=== PATIENT | male | born 1940 | race American Indian/Alaskan Native ===

== ENCOUNTER 2018-09-06 13:22 | Emergency (ER) | payer MEDICARE ==
[2018-09-06 13:22] VITALS: BMI 33.0
[2018-09-06] MEDS ORDERED: Iohexol 240 (50 ml) PO ONE (14:49)
[2018-09-06] MEDS ORDERED: Diatriz Meglumine/Diatriz Sod 30 ML BOTTLE PO ONE (14:49)
--- NOTE | 2018-09-06 15:00 | ED PDOC ---
HPI: Abdomen Time Seen by Provider: 09/06/18 13:51 Chief Complaint (Nursing): Abdominal Pain Chief Complaint (Provider): abdominal pain History Per: Patient History/Exam Limitations: no limitations Onset/Duration Of Symptoms: Days (several weeks) Outside of [place] travel?: No Context: Food Location Of Pain/Discomfort: Epigastric, LUQ, Periumbilical Quality Of Discomfort: Aching Associated Symptoms: Fever, Nausea. denies: Chills, Vomiting, Diarrhea, Loss Of Appetite, Chest Pain, Constipation Alleviating Factors: None Last Bowel Movement: Today Additional Complaint(s): 77 y/o M with HTN, HL, A-fib, CHF, ICD, who presents to ED with persistent abdominal pain. Patient was recently seen in ED in mid July with similar abdominal pain complaint and had CT abdomen that showed cholelithiasis w/o cholecystitis. Pt was discharged with Ibuprofen. He comes back in stating that he has been having colicky abdominal pain for the past week, mostly at night prior to going to bed. No relation to food. + nausea, no vomiting, admits to subjective fevers. States that he gets bloated and just doesn't feel well. Denies C/P, palpitations, SOB, dizziness, diarrhea. Last BM this morning and has been having BMs regularly. He has an appointment with GI in late October but states that the pain is keeping him awake at night. Past Medical History Reviewed: Historical Data, Nursing Documentation, Vital Signs Vital Signs: Last Vital Signs Temp 98.4 F 09/06/18 13:34 Pulse 86 09/06/18 13:34 Resp 18 09/06/18 13:34 BP 145/79 09/06/18 13:34 Pulse Ox 100 09/06/18 13:34 - Medical History PMH: CHF, HTN - Surgical History Surgical History: Pacemaker Other surgeries: cholecystectomy 4yrs ago - Family History Family History: States: Unknown Family Hx - Social History Current smoker - smoking cessation education provided: No Ex-Smoker (has not smoked in the last 12 months): No Alcohol: None Drugs: Denies - Home Medications Home Medications: Ambulatory Orders Medication Instructions Recorded Carvedilol [Coreg] 6.25 mg PO BID 06/25/18 RX: Losartan Potassium 50 mg PO DAILY 06/25/18 RX: Pantoprazole [Protonix EC Tab] 40 mg PO DAILY 06/25/18 Rivaroxaban [Xarelto] 15 mg PO DAILY 06/25/18 Amiodarone [Cordarone] 200 mg PO DAILY 08/19/18 Finasteride [Proscar] 5 mg PO DAILY 08/19/18 Ibuprofen [Motrin] 600 mg PO Q6 PRN #20 tab 08/19/18 RX: Torsemide 20 mg PO DAILY 08/19/18 Tamsulosin HCl [Flomax] 0.4 mg PO DAILY 08/19/18 Atorvastatin [Lipitor] 40 mg PO DAILY 09/02/18 chlordiazePOXIDE-Clinidium [Librax 1 cap PO HS 09/02/18 5 MG-2.5 MG] - Allergies Allergies/Adverse Reactions: Allergies Allergy/AdvReac Type Severity Reaction Status Date / Time No Known Allergies Allergy Verified 09/06/18 13:34 Review of Systems ROS Statement: Except As Marked, All Systems Reviewed And Found Negative Constitutional: Negative for: Fever, Weakness, Weight loss Cardiovascular: Negative for: Chest Pain Respiratory: Negative for: Cough Gastrointestinal: Positive for: Nausea, Abdominal Pain. Negative for: Vomiting, Diarrhea, Constipation Neurological: Negative for: Weakness Physical Exam - Reviewed Nursing Documentation Reviewed: Yes Vital Signs Reviewed: Yes - Physical Exam Appears: Positive for: Uncomfortable Head Exam: Positive for: ATRAUMATIC Skin: Positive for: Normal Color Eye Exam: Positive for: Normal appearance ENT: Positive for: Normal ENT Inspection Neck: Positive for: Normal Cardiovascular/Chest: Positive for: Regular Rate, Rhythm Respiratory: Positive for: Normal Breath Sounds Gastrointestinal/Abdominal: Positive for: Bowel Sounds (normal), Soft, Tenderness (epigastric and mild LUQ tenderness), Distended (mild distention), Other. Negative for: Organomegaly, Mass, Guarding, Rebound Back: Positive for: Normal Inspection Lymphatic: Positive for: Normal Exam Neurologic/Psych: Positive for: Alert, Oriented - Laboratory Results Result Diagrams: 09/06/18 16:00 09/06/18 16:00 - ECG O2 Sat by Pulse Oximetry: 100 Medical Decision Making Medical Decision Making: CT abdomen/pelvis w/ PO and IV contrast, CBC CMP Amylase/Lipase Urine dip Pepcid 20mg IV x 1 EKG: NSR, no ischemic change Trop: < 0.2 CT abdomen/pelvis w/ PO and IV contrast: Prior cholecystectomy in question. Dilated mid to distal CBD w/o radiodense cholelithiasis identified. Potential dilatation of the distal pancreatic duct at the level of the pancreatic head w/ pancreatic cyst not excluded. F/u U/s of the abdomen advised as well as MRCP and abdomen MRI w/ and w/o contrast. 2. No bowel obstruction, measure edema, ascites or free intra peritoneal gas collection identified. 3. Tiny lucency at the dome of the liver too small to characterize. Re-evaluated @ 8pm: pain improved, lying comfortably. Surgery consult given CT findings Abdomen U/S limited ordered Patient signed out to ALEXANDRA Black at 9:20pm pending U/S result and surgery consult. Disposition - Clinical Impression Clinical Impression: Abdominal discomfort - Disposition Disposition Time: 21:20 Condition: FAIR Forms: [employer] (Japanese)
[2018-09-06] MEDS ORDERED: Iohexol 240 (50 ml) ONE (15:20)
[2018-09-06 16:26] LABS: BASO % 0.5 % (0.0-2.0); EOS # 0.1 K/uL (0.0-0.7); EOS % 2.1 % (0.0-4.0); HEMOGLOBIN 11.3 g/dL (12.0-18.0); LYMPH # 1.2 K/uL (1.0-4.3); LYMPH % 29.3 % (20.0-40.0); MEAN CELL VOLUME 88.6 fl (80.0-94.0); MEAN CORPUSCULAR HEMOGLOBIN 28.3 pg (27.0-31.0); MEAN PLATELET VOLUME 8.5 fl (7.2-11.7); MONO # 0.5 K/uL (0.0-0.8); MONO % 12.7 % (0.0-10.0); NEUT # 2.4 K/uL (1.8-7.0); NEUT % 55.4 % (50.0-75.0); NRBC % 0.1 % (0.0-0.0); RED CELL DISTRIBUTION WIDTH 17.4 % (11.5-14.5); WHITE BLOOD COUNT 4.3 K/uL (4.8-10.8)
[2018-09-06 16:40] LABS: ALB/GLOB RATIO 1.1 (1.0-2.1); ALBUMIN 4.1 g/dL (3.5-5.0); CALCIUM 8.5 mg/dL (8.4-10.2)
[2018-09-06 16:50] LABS: TROPONIN I 0.021 ng/mL (0.00-0.120)
[2018-09-06] MEDS ORDERED: Sodium Chloride 0.9% 50 ML IV ONE (17:25)
[2018-09-06] MEDS ORDERED: Iodixanol 320 MG/ML 100 ML BOTTLE IV ONE (17:25)
--- NOTE | 2018-09-06 18:41 | CT ---
Date of service: 09/06/2018 PROCEDURE: CT Abdomen and Pelvis with contrast HISTORY: abdominal pain COMPARISON: None. TECHNIQUE: Following oral and intravenous contrast administration, a CT examination of the abdomen and pelvis performed from the domes of the diaphragms to the symphysis pubis with reformatted datasets provided not only axial but also sagittal and coronal series. Coronal and sagittal reformats were generated. contrast dose: Visipaque 320, 100 cc Radiation dose: Total exam DLP = 866.95 mGy-cm. This CT exam was performed using one or more of the following dose reduction techniques: Automated exposure control, adjustment of the mA and/or kV according to patient size, and/or use of iterative reconstruction technique. FINDINGS: LOWER THORAX: Prominent cardiomegaly. AICD/pacemaker leads are identified at the right heart. Small hiatal hernia identified. LIVER: A tiny lucency is identified at the dome liver too small to characterize. GALLBLADDER AND BILE DUCTS: There are numerous small ovoid calcifications identified in the gallbladder fossa suggested within the gallbladder lumen. However, there is what appears to be a surgical clip lateral to these rounded structures. The common bile duct appears to measure approximately 11 mm at its mid to distal segment without radiodense cholelithiasis. Consider possible cholecystectomy with non bile origin calcifications near the gallbladder fossa. Further clinical correlation recommended. PANCREAS: Questionable dilatation of the distal pancreatic duct at the pancreatic head. Pancreatic cystic lesion is not excluded. Follow-up ultrasound recommended. SPLEEN: Unremarkable. ADRENALS: Unremarkable. No mass. KIDNEYS AND URETERS: Unremarkable. No hydronephrosis. No solid mass. VASCULATURE: Nonaneurysmal abdominal aortic calcific atherosclerotic changes are identified. BOWEL: Stomach is mildly distended with oral contrast material and retained food and is unremarkable grossly. There is no bowel obstruction identified. Moderate retained fecal material scattered throughout various large bowel segments obscures evaluation including the cecum and ascending segment. No colonic diverticular changes or pericolic reaction. APPENDIX: Normal appendix. PERITONEUM: Unremarkable. No free fluid. No free air. LYMPH NODES: Unremarkable. No enlarged lymph nodes. BLADDER: Unremarkable. REPRODUCTIVE: Unremarkable. BONES: No acute fracture. OTHER FINDINGS: None. IMPRESSION: 1. Prior cholecystectomy in question. Dilated mid to distal CBD without radiodense cholelithiasis identified. Potential dilatation of the distal pancreatic duct at the level the pancreatic head with pancreatic cyst not excluded. Follow-up ultrasound of the abdomen advised as well as MRCP and abdomen MRI with and without contrast. 2. No bowel obstruction, measure edema, ascites or free intra peritoneal gas collection identified. 3. Tiny lucency at the dome liver too small to characterize.
[2018-09-06 21:05] VITALS: RESP 16
--- NOTE | 2018-09-06 21:41 | ED PDOC ---
- Laboratory Results Result Diagrams: 09/06/18 16:00 09/06/18 16:00 - ECG O2 Sat by Pulse Oximetry: 100 - Progress ED Course And Treament: Case endorsed to racebook writer from Júnior GUIDO pending u/s, surgical consult Date of service: 09/06/[address] for gallbladder. Comparison CT 09/06/18. Technique Sonographic evaluation of the right upper quadrant of the abdomen. Findings Liver Measures 14.5 cm in length. Normal echogenicity of the liver parenchyma. Smooth contour. No mass. No intrahepatic bile duct dilatation. Gallbladder Surgical clip is noted in the gallbladder fossa, please correlate with surgical history. Cluster of gallstones is noted located within contracted gallbladder. No pericholecystic fluid. Gallbladder wall is not clearly seen. Negative Lyons sign. Common bile duct Measures 0.4 cm. No stones. No dilatation. Pancreas Unremarkable as visualized. No mass. No ductal dilatation. Right kidney Measures 9.0 x 3.8 x 4.0 cm in length. Normal echogenicity. No calculus, mass, or hydronephrosis. Aorta No aneurysmal dilatation. IVC Unremarkable. Other Findings None. Impression Surgical clip is noted in the gallbladder fossa, please correlate with surgical history. Cluster of gallstones is noted located within contracted gallbladder. residential real estate appraiser Dr. Gan informed of u/s results; recommends outpatient follow up with Dr. Moody On re-eval, patient resting comfortably; states no pain currently. Patient was educated on findings, discharged with rx Tylenol Advised follow up with Surgeon Return precautions given Patient demonstrates full understanding of discharge instructions Patient requires no further intervention in the ED and is stable for discharge at this time Disposition - Clinical Impression Clinical Impression: Abdominal discomfort, Cholelithiasis - POA Present On Arrival: None - Disposition Referrals: Cathryn Moody MD [Staff Provider] - Disposition: Routine/Home Disposition Time: 00:20 Condition: IMPROVED Prescriptions: Acetaminophen [Tylenol Extra Strength] 500 mg PO Q4 PRN #20 tablet PRN Reason: Pain, Mild (1-3) Instructions: Gallstones Forms: [employer] (Turkish)
[2018-09-06] MEDS ORDERED: Simethicone 80 mg Chewtab PO STA (21:49)
[2018-09-07 01:06] VITALS: BP 122/70; PULSE 66; TEMP 98.4; O2SAT 98
--- NOTE | 2018-09-07 10:06 | US ---
Date of service: 09/06/2018 HISTORY: abdominal pain, ?cholelithiasis, abnormal CT COMPARISON: None. TECHNIQUE: Sonographic evaluation of the right upper quadrant of the abdomen. FINDINGS: LIVER: Measures cm in length. 14.5 echogenicity of the liver parenchyma. No mass. No intrahepatic bile duct dilatation. GALLBLADDER: Status post cholecystectomy as per CT examination of the same date. Likely multiple calculi within cystic duct remnant. COMMON BILE DUCT: Measures 4 mm. No stones. No dilatation. PANCREAS: Limited visualization the questionable cyst identified in the pancreatic head on CT examination of the same date is not amenable to evaluation on this examination. RIGHT KIDNEY: Measures 9.0 cm in length. Normal echogenicity. No calculus, mass, or hydronephrosis. AORTA: No aneurysmal dilatation. IVC: Unremarkable. OTHER FINDINGS: None . IMPRESSION: Findings consistent with retained calculi in cystic duct remnant, status post cholecystectomy. No evidence of choledocholithiasis. No evidence of biliary obstruction. Pancreas could not be adequately evaluated. No evidence of pancreatic ductal dilatation. Consider further evaluation with MRI abdomen/MRCP. The preliminary findings for this examination were reported by [facility] at 11:32 p.m. on 09/06/2018. There is discordance of this report with the preliminary findings. The patient is status post cholecystectomy and the calculi are felt to be likely within a cystic duct remnant.
--- NOTE | 2018-09-07 10:51 | CARD ---
APPROVED REPORT Date of service: 09/06/2018 EKG Measurement Heart [id number] <Conclusion> Sinus rhythm with occasional premature ventricular complexes Nonspecific intraventricular block Nonspecific T wave abnormality Abnormal ECG
== END 2018-09-07 00:45 | disposition home or self-care (01) ==
LOC: H.ER 13:22
DX: K80.20 Calculus of gallbladder without cholecystitis without obstruction (principal); I11.0 Hypertensive heart disease with heart failure; I50.9 Heart failure, unspecified; Z95.0 Presence of cardiac pacemaker
CPT/HCPCS: 74177; 76705; 80053; 83690; 84484; 85025; 93005; 96374; 99285; Q9966; Q9967

== ENCOUNTER 2018-09-24 14:04 | Emergency (ER) | payer MEDICARE ==
[2018-09-24 14:05] VITALS: BMI 33.0
[2018-09-24] MEDS ORDERED: Sodium Chloride 0.9% 1,000 ML IV STA (15:09)
--- NOTE | 2018-09-24 15:11 | ED PDOC ---
HPI: Abdomen Time Seen by Provider: 09/24/18 14:47 Chief Complaint (Nursing): Abdominal Pain Chief Complaint (Provider): Abdominal pain History Per: Patient History/Exam Limitations: no limitations Onset/Duration Of Symptoms: Persistent Current Symptoms Are (Timing): Still Present Location Of Pain/Discomfort: Diffuse Quality Of Discomfort: "Pain" Additional History Per: Patient Additional Complaint(s): 77yo male, history of hypertension, comes to ER reporting diffuse abdominal pain x 1 year, which worsened yesterday. He reports associated watery, non-bloody diarrhea but denies any vomiting. Patient otherwise denies any fever, chills, or urinary symptoms. No additional complaints. PMD: Zeyad Corw Past Medical History Reviewed: Historical Data, Nursing Documentation, Vital Signs Vital Signs: Last Vital Signs Temp 98.4 F 09/24/18 14:30 Pulse 82 09/24/18 14:30 Resp 19 09/24/18 14:30 BP 121/67 09/24/18 14:30 Pulse Ox 99 09/24/18 14:30 - Medical History PMH: CHF, HTN - Surgical History Surgical History: Pacemaker - Family History Family History: States: No Known Family Hx - Home Medications Home Medications: Ambulatory Orders Medication Instructions Recorded Carvedilol [Coreg] 6.25 mg PO BID 06/25/18 Losartan Potassium 50 mg PO DAILY 06/25/18 Pantoprazole [Protonix EC Tab] 40 mg PO DAILY 06/25/18 Rivaroxaban [Xarelto] 15 mg PO DAILY 06/25/18 Amiodarone [Cordarone] 200 mg PO DAILY 08/19/18 Finasteride [Proscar] 5 mg PO DAILY 08/19/18 Ibuprofen [Motrin] 600 mg PO Q6 PRN #20 tab 08/19/18 Tamsulosin HCl [Flomax] 0.4 mg PO DAILY 08/19/18 Torsemide 20 mg PO DAILY 08/19/18 Atorvastatin [Lipitor] 40 mg PO DAILY 09/02/18 chlordiazePOXIDE-Clinidium [Librax 1 cap PO HS 09/02/18 5 MG-2.5 MG] Acetaminophen [Tylenol Extra 500 mg PO Q4 PRN #20 tablet 09/07/18 Strength] - Allergies Allergies/Adverse Reactions: Allergies Allergy/AdvReac Type Severity Reaction Status Date / Time No Known Allergies Allergy Verified 09/06/18 13:34 Review of Systems ROS Statement: Except As Marked, All Systems Reviewed And Found Negative Constitutional: Negative for: Fever, Chills Gastrointestinal: Positive for: Abdominal Pain, Diarrhea. Negative for: Nausea, Vomiting Genitourinary Male: Negative for: Dysuria, Hematuria Physical Exam - Reviewed Nursing Documentation Reviewed: Yes Vital Signs Reviewed: Yes - Physical Exam Appears: Positive for: Non-toxic, No Acute Distress Head Exam: Positive for: ATRAUMATIC, NORMAL INSPECTION, NORMOCEPHALIC Skin: Positive for: Normal Color Eye Exam: Positive for: Normal appearance Neck: Positive for: Supple Cardiovascular/Chest: Positive for: Regular Rate, Rhythm Respiratory: Positive for: Normal Breath Sounds Gastrointestinal/Abdominal: Positive for: Soft, Tenderness (mild tenderness to bilateral lower quadrants). Negative for: Guarding, Rebound Back: Positive for: Normal Inspection Extremity: Positive for: Normal ROM Neurologic/Psych: Positive for: Alert, Oriented. Negative for: Motor/Sensory Deficits - Laboratory Results Result Diagrams: 09/24/18 16:16 - ECG O2 Sat by Pulse Oximetry: 99 (RA) Pulse Ox Interpretation: Normal Medical Decision Making Medical Decision Making: Impression: 77yo male with diffuse abdominal pain x 1 year, worse yesterday Plan: * Labs * CT Abdomen/Pelvis w/ IV contrast * IV Fluids * Bentyl 10mg PO Scribe Attestation: Documented by Maida Hamilton, acting as a scribe for Tato Zheng MD. Provider Scribe Attestation: All medical record entries made by the Scribe were at my direction and personally dictated by me. I have reviewed the chart and agree that the record accurately reflects my personal performance of the history, physical exam, medical decision making, and the department course for this patient. I have also personally directed, reviewed, and agree with the discharge instructions and disposition. Disposition - Clinical Impression Clinical Impression: Abdominal pain - Patient ED Disposition Is Patient to be Admitted: Transfer of Care - Disposition Disposition: Transfer of Care Disposition Time: 17:00 Condition: FAIR Forms: [employer] (Spanish) Patient Signed Over To: Dee Dee Hurt
[2018-09-24 16:20] LABS: HEMOGLOBIN 10.2 g/dL (12.0-18.0); LYMPH % 10.5 % (20.0-40.0); MEAN CELL VOLUME 87.3 fl (80.0-94.0); MEAN CORPUSCULAR HEMOGLOBIN 27.8 pg (27.0-31.0); MEAN CORPUSCULAR HGB CONC 31.8 g/dL (33.0-37.0); MEAN PLATELET VOLUME 8.2 fl (7.2-11.7); NEUT % 77.3 % (50.0-75.0); RBC 3.68 Mil/uL (4.40-5.90); WHITE BLOOD COUNT 3.7 K/uL (4.8-10.8)
[2018-09-24 16:21] LABS: BASO % 0.5 % (0.0-2.0); EOS % 1.1 % (0.0-4.0); LYMPH # 0.4 K/uL (1.0-4.3); MONO # 0.4 K/uL (0.0-0.8); MONO % 10.6 % (0.0-10.0); NEUT # 2.9 K/uL (1.8-7.0)
[2018-09-24 16:55] LABS: ALBUMIN 3.7 g/dL (3.5-5.0)
--- NOTE | 2018-09-24 17:20 | ED PDOC ---
- Laboratory Results Result Diagrams: 09/24/18 16:16 09/24/18 16:30 - ECG O2 Sat by Pulse Oximetry: 99 (RA) Pulse Ox Interpretation: Normal Medical Decision Making Medical Decision Makin Patient signed out to me by Dr. Zheng pending CT study, reassessment. Accession No. : [id number] Patient Name / ID : ROYA MCKEE / [id number] Exam Date : 09/24/2018 18:13:09 ( Approved ) Study Comment : Sex / Age : M / 77Y Creator : Doug Colbert MD Dictator : Doug Colbert MD Business Quality Assurance Analyst : Plant Facilities Technician : Dogu Colbert MD Approver2 : Report Date : 09/24/2018 18:52:26 My Comment : Date of service: 09/24/2018 PROCEDURE: CT Abdomen and Pelvis with contrast HISTORY: Abd pain COMPARISON: Comparison is made with 09/06/2018 previous ultrasound dated 09/06/2018 TECHNIQUE: Contrast dose: 95 cc of Omnipaque 300 intravenously. Axial and reformatted coronal and sagittal CT images of the abdomen and pelvis were obtained after IV contrast administration. Radiation dose: Total exam DLP = 807.39 mGy-cm. This CT exam was performed using one or more of the following dose reduction techniques: Automated exposure control, adjustment of the mA and/or kV according to patient size, and/or use of iterative reconstruction technique. FINDINGS: LOWER THORAX: No evidence of acute pathology. Cardiomegaly is noted. LIVER: Again noted is sub centimeter low-attenuation lesion at the liver dome likely represent liver cysts. Otherwise the liver demonstrates homogeneous enhancement GALLBLADDER AND BILE DUCTS: Calcification and stones at the gallbladder fossa. No evidence of acute cholecystitis. PANCREAS: There is low-attenuation lesion at the pancreatic head measures 16 millimeter in the transverse diameter. There is also low-attenuation lesion at the pancreatic head measures 12 millimeter. No evidence of acute pancreatitis. No evidence of dilated main pancreatic duct SPLEEN: Unremarkable. ADRENALS: Unremarkable. No mass. KIDNEYS AND URETERS: Unremarkable. No hydronephrosis. No solid mass. VASCULATURE: Unremarkable. No aortic aneurysm. Foci of aortic atherosclerotic calcification are present. BOWEL: Unremarkable. No obstruction. No gross mural thickening. APPENDIX: No evidence of acute appendicitis. PERITONEUM: Unremarkable. No free fluid. No free air. LYMPH NODES: Unremarkable. No enlarged lymph nodes. BLADDER: Unremarkable. REPRODUCTIVE: The prostate is mildly enlarged P BONES: No acute fracture. OTHER FINDINGS: Small fat containing left inguinal hernia is again noted. IMPRESSION: No evidence of acute pathology or significant interval change since the previous exam. Low-attenuation lesion noted at the pancreatic head. Further assessment by MRI/MRCP is suggested. Possible gallstones or stones in the cystic duct after cholecystectomy. Additional findings as discussed above 2241 US Abdomen Findings: The pancreas is limited in visualization secondary to overlying bowel gas, but appears grossly unremarkable. The liver demonstrates uniform echotexture and echogenicity, with no mass lesions. There is a simple cyst in the left lobe of the liver measuring 0.9 x 1.2 x 0.7 cm. The patient is status post cholecystectomy. Echogenic foci in the gallbladder fossa consistent with gallbladder surgical clips. The common bile duct measures 6 mm and is within normal limits. The right kidney measures 10.1 cm in length. There is no evidence of hydronephrosis or nephrolithiasis. There is no ascites. Impression: No acute abnormality. Simple cyst in the left lobe of the liver. 2300 Pt feeling better in ER and tolerated meal. Stable for discharge with outpatient followup within 2-3 days Scribe Attestation: Documented by Maida Hamilton, acting as a scribe for Dee Dee Hurt MD. Provider Scribe Attestation: All medical record entries made by the Scribe were at my direction and personally dictated by me. I have reviewed the chart and agree that the record accurately reflects my personal performance of the history, physical exam, medical decision making, and the department course for this patient. I have also personally directed, reviewed, and agree with the discharge instructions and disposition. Disposition - Clinical Impression Clinical Impression: Abdominal pain - POA Present On Arrival: None - Disposition Referrals: [facility] [Outside] (FOLLOW UP WITH YOUR DOCTOR OR CLINIC TOMORROW) Disposition: Routine/Home Disposition Time: 23:00 Condition: IMPROVED Prescriptions: Dicyclomine [Bentyl] 20 mg PO QID PRN #20 tab PRN Reason: abdominal pain Instructions: Acute Abdomen (Belly Pain)
[2018-09-24] MEDS ORDERED: Sodium Chloride 0.9% 50 ML IV ONE (18:01)
[2018-09-24] MEDS ORDERED: Iohexol 300 100 ML IJ ONE (18:01)
--- NOTE | 2018-09-24 18:56 | CT ---
Date of service: 09/24/2018 PROCEDURE: CT Abdomen and Pelvis with contrast HISTORY: Abd pain COMPARISON: Comparison is made with 09/06/2018 previous ultrasound dated 09/06/2018 TECHNIQUE: Contrast dose: 95 cc of Omnipaque 300 intravenously. Axial and reformatted coronal and sagittal CT images of the abdomen and pelvis were obtained after IV contrast administration. Radiation dose: Total exam DLP = 807.39 mGy-cm. This CT exam was performed using one or more of the following dose reduction techniques: Automated exposure control, adjustment of the mA and/or kV according to patient size, and/or use of iterative reconstruction technique. FINDINGS: LOWER THORAX: No evidence of acute pathology. Cardiomegaly is noted. LIVER: Again noted is sub centimeter low-attenuation lesion at the liver dome likely represent liver cysts. Otherwise the liver demonstrates homogeneous enhancement GALLBLADDER AND BILE DUCTS: Calcification and stones at the gallbladder fossa. No evidence of acute cholecystitis. PANCREAS: There is low-attenuation lesion at the pancreatic head measures 16 millimeter in the transverse diameter. There is also low-attenuation lesion at the pancreatic head measures 12 millimeter. No evidence of acute pancreatitis. No evidence of dilated main pancreatic duct SPLEEN: Unremarkable. ADRENALS: Unremarkable. No mass. KIDNEYS AND URETERS: Unremarkable. No hydronephrosis. No solid mass. VASCULATURE: Unremarkable. No aortic aneurysm. Foci of aortic atherosclerotic calcification are present. BOWEL: Unremarkable. No obstruction. No gross mural thickening. APPENDIX: No evidence of acute appendicitis. PERITONEUM: Unremarkable. No free fluid. No free air. LYMPH NODES: Unremarkable. No enlarged lymph nodes. BLADDER: Unremarkable. REPRODUCTIVE: The prostate is mildly enlarged P BONES: No acute fracture. OTHER FINDINGS: Small fat containing left inguinal hernia is again noted. IMPRESSION: No evidence of acute pathology or significant interval change since the previous exam. Low-attenuation lesion noted at the pancreatic head. Further assessment by MRI/MRCP is suggested. Possible gallstones or stones in the cystic duct after cholecystectomy. Additional findings as discussed above
[2018-09-24 20:04] VITALS: BP 133/71; PULSE 74; RESP 16; TEMP 98.5
[2018-09-24 22:41] VITALS: O2SAT 99
--- NOTE | 2018-09-25 10:57 | US ---
Date of service: 09/24/2018 HISTORY: Abdominal pain. COMPARISON: 09/06/2018 abdominal ultrasound. 09/24/2018 CT abdomen and pelvis. TECHNIQUE: Sonographic evaluation of the right upper quadrant of the abdomen. FINDINGS: LIVER: Measures 14.3 cm in length. Normal echogenicity of the liver parenchyma. No mass. No intrahepatic bile duct dilatation. Confirmation of cysts that identified on recent CT scan. GALLBLADDER: Prior cholecystectomy. Two echogenic foci identified likely in the common duct remnant both measuring approximately 10 mm. COMMON BILE DUCT: Measures 6.4 mm. No stones. No dilatation. PANCREAS: Obscured by overlying bowel gas. Non diagnostic assessment of the RIGHT KIDNEY: Measures 0.9 x 10.1 cm in length. Normal echogenicity. No calculus, mass, or hydronephrosis. AORTA: No aneurysmal dilatation. IVC: Unremarkable. OTHER FINDINGS: None . IMPRESSION: Calculi in the gallbladder fossa status post cholecystectomy. Findings likely in the cystic duct remnant, findings better seen on recent CT scan. Limitations of the current examination: Nonvisualization of the pancreas. These represent discordant findings with the preliminary interpretation. However, the correct findings were made on the CT scan of 09/24/2018.
== END 2018-09-24 23:20 | disposition home or self-care (01) ==
LOC: H.ER 14:04
DX: R10.9 Unspecified abdominal pain (principal); Z95.0 Presence of cardiac pacemaker; Z90.49 Acquired absence of other specified parts of digestive tract; I11.0 Hypertensive heart disease with heart failure; I50.9 Heart failure, unspecified
CPT/HCPCS: 74177; 76705; 80053; 83690; 85025; 99284; J7030; Q9967